=== PATIENT | male | born 1990 | race Caucasian/White ===

== ENCOUNTER 2020-12-05 08:26 | Emergency (ER) | payer SELFPAY ==
[~2020-12-05] VITALS: Ht 170.2 cm; Wt 74.4 kg
[2020-12-05 08:30] VITALS: BP 124/69
[2020-12-05] MEDS ORDERED: IBUPROFEN 600 MG TAB PO ONE (09:25)
[2020-12-05] MEDS ORDERED: ACETAMINOPHEN EXTRA STRENGTH 500 MG TAB PO ONE (09:25)
[2020-12-05] MEDS ORDERED: CYCL-711 PO (09:28)
[2020-12-05] MEDS ORDERED: ACET-10509 PO (09:28)
[2020-12-05] MEDS ORDERED: IBUP-2213 PO (09:28)
[2020-12-05 09:45] VITALS: BP 124/69
== END 2020-12-05 09:46 | disposition home or self-care (01) ==
LOC: MED 08:26
DX: S39.012A Strain of muscle, fascia and tendon of lower back, initial encounter (principal); Z79.899 Other long term (current) drug therapy; X58.XXXA Exposure to other specified factors, initial encounter; Y93.89 Activity, other specified; Y92.89 Other specified places as the place of occurrence of the external cause; Y99.8 Other external cause status
CPT/HCPCS: 99283

== ENCOUNTER 2020-12-10 08:52 | Emergency (ER) | payer SELFPAY ==
[~2020-12-10] VITALS: Ht 167.6 cm; Wt 75.3 kg
[~2020-12-10 08:52] MED LIST: ACET-10509 PO; CYCL-711 PO; IBUP-2213 PO
[2020-12-10 09:00] VITALS: BP 109/74
--- NOTE | 2020-12-10 09:09 | NUR ---
PT AMBULATED TO BED
--- NOTE | 2020-12-10 09:15 | NUR ---
29 MALE BIB SELF C/O LOW BACK PAIN SINCE TUESDAY. 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 PT STATES 10 PAIN. PT WAS SEEN IN ER AND WAS SENT HOME WITH MEDICATION. PT STATES "HE WAS AT WORK AND UNABLE TO LIFT A PACKAGE AND WAS TOLD BY HER EMPLOYEER TO RECEIVE AN XRAY TO ENSURE HE CAN STILL WORK." PT STATES LAYING DOWN MAKES HIS PAIN WORSE MEDHX: DENIES NKA
--- NOTE | 2020-12-10 09:30 | NUR ---
MD BEDSIDE EVALUATING PATIENT
[2020-12-10] MEDS ORDERED: CYCL-711 PO (09:46)
[2020-12-10] MEDS ORDERED: IBUP-1842 PO (09:46)
[2020-12-10] MEDS ORDERED: ACET-9882 PO (09:46)
[2020-12-10 10:00] VITALS: BP 109/74
--- NOTE | 2020-12-10 10:00 | NUR ---
Patient discharged with v/s stable. Written and verbal after care instructions given ACUTE BACK PAIN, AND BACK EXERCISES and explained. Patient alert, oriented and verbalized understanding of instructions. Ambulatory with steady gait. All questions addressed prior to discharge. ID band removed. Patient advised to follow up with PMD. Rx of FLEXERIL 10MG PO TID FOR MUSCLE SPASMS, MOTRIN 400MG PO QID PRN PAIN, AND TYNENOL 500MG PO Q6-8 PRN PAIN given. Patient educated on indication of medication including possible reaction and side effects. Opportunity to ask questions provided and answered.
== END 2020-12-10 10:00 | disposition home or self-care (01) ==
LOC: MED 08:52
DX: M54.5 Low back pain (principal)
CPT/HCPCS: 99283